=== PATIENT | male | born 1965 | race Caucasian/White ===

== ENCOUNTER 2018-07-20 20:24 | Emergency (ER) | payer MEDICAID ==
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
--- NOTE | 2018-07-21 09:41 | Diagnostic Imaging Report ---
CT scan of the brain without contrast History: Trauma Total DLP equals 837 CTDI equals 21.8 Axial sections were obtained from the base of the skull to the vertex. There is a normal ventricular system size. No focal parenchymal lesions are seen. No evidence of any mass effect or shift of midline structures. No extra-axial masses or abnormal fluid collections. There is evidence of sinusitis. Impression: Sinusitis
== END 2018-07-20 21:55 | disposition home or self-care (01) ==
LOC: ER 20:24
DX: S01.81XA Laceration without foreign body of other part of head, initial encounter (principal); I10 Essential (primary) hypertension; I25.10 Atherosclerotic heart disease of native coronary artery without angina pectoris; E11.9 Type 2 diabetes mellitus without complications; Z86.73 Personal history of transient ischemic attack (TIA), and cerebral infarction without residual deficits; Y04.0XXA Assault by unarmed brawl or fight, initial encounter; Y93.89 Activity, other specified; Y92.89 Other specified places as the place of occurrence of the external cause; Y99.8 Other external cause status
CPT/HCPCS: 12011; 70450-TC